=== PATIENT | male | born 1935 | race Hispanic/Latino ===

== ENCOUNTER 2017-02-06 03:58 | Emergency (ER) | payer MEDICARE ==
[~2017-02-06] VITALS: Ht 170.2 cm; Wt 82.2 kg
[~2017-02-06 03:58] MED LIST: ACYCLOVIR800 MG OR; ADULT ASPIRIN E81 MG PO; ALLEGRA-D 2424 HOUR PO; AMBIEN5 MG PO; ASPIRIN EC81 MG PO; ASPIRIN LOW81 M1 PO; AUGMENTIN500TAB PO; BLOOD GLUCOSE TEST S VI; CHEMO; COUMADIN7.5 MG OR; FLONASE NASAL50 MCG; FLUTICASONE50 MCG; GABAPENTIN300 M2 PO; GABAPENTIN300 MG PO; LANCETS XX; LOPRESSOR 550 MG/TAB PO; LOPRESSOR50 MG PO; LORTAB 7.5 OR; LORTAB 7.5 PO; LOSARTAN POT50 MG PO; LOVENOX 4040 MG/0.4 SC; MEDDOSEPAK PO; METFORMIN500 M1 OR; METFORMIN500 M1 PO; METFORMIN500 MG PO; METOPROLOL TART50 MG PO; METOPROLOL50 M1 OR; METOPROLOL50 MG OR; MIRAPEX0.25 MG PO; MIRAPEX0.5 MG PO; NAPROSYN375 MG PO; NAPROSYN500 MG PO; NEUPOGEN IJ; NEURONTIN300 MG PO; NORCO1 TA1 PO; PERCOCET 5/325M1 TAB OR; PERI-COLACE1 TAB PO; PRAVASTATIN20 MG PO; REQUIP2 MG OR; RESTORIL15 M1 PO; ROPINIROLE2 MG OR; ROPINIROLE2 MG PO; TEMAZEPAM15 MG PO; TYLENOL # 31 TA1 PO; ZOFRAN4 MG/TAB PO; ZPAK PO; ZYRTEC-D AL1 OR
[2017-02-06] MEDS ORDERED: GABAPENTIN300 MG PO (04:14)
[2017-02-06 05:25] LABS: URINE BILIRUBIN - DIPSTICK NEGATIVE (NEGATIVE); URINE BLOOD DIPSTICK SMALL (NEGATIVE); URINE CLARITY CLEAR; URINE COLOR YELLOW; URINE GLUCOSE - DIPSTICK NEGATIVE (NEGATIVE); URINE KETONE NEGATIVE (NEGATIVE); URINE LEUK ESTERASE NEGATIVE (NEGATIVE); URINE NITRITE - DIPSTICK NEGATIVE (Negative); URINE PH 5.5 (4.5-8.0); URINE PROTEIN - DIPSTICK NEGATIVE (NEG-TRACE); URINE SPECIFIC GRAVITY 1.025; URINE UROBILINOGEN - DIPSTICK 0.2 E.U./dL (0.2)
[2017-02-06 05:26] LABS: HEMATOCRIT 41.6 % (39.0-50.0); HEMOGLOBIN 14.3 g/dl (14.0-18.0); IMMATURE GRANULOCYTES 0.2 % (0.0-1.0); MEAN CELL VOLUME 90.4 fL CALC (80.0-100.0); MEAN CORPUSCULAR HGB 31.1 pG CALC (26.0-32.0); MEAN CORPUSCULAR HGB CONC 34.4 g/L CALC (32.0-36.0); NEUT# 5.84 thou/uL (1.82-7.42); RED BLOOD COUNT 4.6 mill/uL (4.70-6.10); RED CELL DISTRI WIDTH 13.6 % (11.5-15.5)
[2017-02-06 05:37] LABS: URINE WBC 0-2 WBC/hpf (0-5)
[2017-02-06 06:08] LABS: ALBUMIN 4.5 g/dL (3.2-5.0); ALKALINE PHOSPHATASE 76 u/l (38-126); AMYLASE 77 u/l (30-110); ANION GAP 16 (6-22 (CALC)); BILIRUBIN, TOTAL 0.5 mg/dL (0.0-1.4); BUN 14 mg/dL (8-23); BUN/CREATININE RATIO 19 (12-20 (CALC)); CALCIUM 9.8 mg/dL (8.4-10.2); CARBON DIOXIDE 28 mmol/l (22-30); CHLORIDE 104 mmol/l (95-108); CREATININE 0.7 mg/dL (0.7-1.3); GFR > 60 ML/MIN (>=60 (CALC)); GFR FOR AFR.AMER. > 60 ML/MIN (>=60 (CALC)); GLUCOSE 133 mg/dL (82-115); LIPASE 119 u/l (23-300); POTASSIUM 4.3 mmol/l (3.5-5.1); SGOT/AST 18 u/l (19-48); SGPT/ALT 19 u/l (11-66); SODIUM 144 mmol/l (137-146); TOTAL PROTEIN 7.7 g/dL (6.3-8.2)
[2017-02-06 07:46] VITALS: BP 175/74
[2017-02-06] MEDS ORDERED: ULTRAM50 M1 PO (07:55)
== END 2017-02-06 08:06 | disposition home or self-care (01) ==
LOC: ED 03:58
PROVIDERS: Emergency Medicine
DX: R10.33 Periumbilical pain (principal); I10 Essential (primary) hypertension; E11.9 Type 2 diabetes mellitus without complications; E78.00 Pure hypercholesterolemia, unspecified; Z86.718 Personal history of other venous thrombosis and embolism; Z85.038 Personal history of other malignant neoplasm of large intestine; Z90.49 Acquired absence of other specified parts of digestive tract
CPT/HCPCS: Q9967

== ENCOUNTER 2020-12-20 10:41 | Emergency (ER) | payer MEDICARE ==
[~2020-12-20] VITALS: Ht 170.2 cm; Wt 60.0 kg
[~2020-12-20 10:41] MED LIST changes: +ULTRAM50 M1 PO
[2020-12-20] MEDS ORDERED: AMOX/K CLAV875 M1 PO (12:09)
[2020-12-20 12:32] VITALS: BP 138/89
== END 2020-12-20 12:32 | disposition home or self-care (01) ==
LOC: ED 10:41
DX: K04.7 Periapical abscess without sinus (principal); E11.9 Type 2 diabetes mellitus without complications; I10 Essential (primary) hypertension; E78.5 Hyperlipidemia, unspecified; Z85.038 Personal history of other malignant neoplasm of large intestine; Z86.718 Personal history of other venous thrombosis and embolism; Z90.49 Acquired absence of other specified parts of digestive tract

== ENCOUNTER 2025-01-26 09:13 | Emergency (ER) | payer MEDICARE ==
[2025-01-26] VITALS (8 sets, daily range): BP systolic 147–225; BP diastolic 47–168
[~2025-01-26] VITALS: Ht 170.2 cm; Wt 79.5 kg
[~2025-01-26 09:13] MED LIST changes: +AMOX/K CLAV875 M1 PO
[2025-01-26] MEDS ORDERED: MORPHINE SULFATE 4 MG/ML VIAL IV ONE (09:25)
[2025-01-26] MEDS ORDERED: ONDANSETRON HCl 4 MG/2 ML SDV IV ONE (09:25)
[2025-01-26 09:43] LABS: BASO% 0.3 % (0-3); EOS% 2.6 % (0-8); HEMATOCRIT 37.4 % (39.0-50.0); HEMOGLOBIN 12.4 g/dl (14.0-18.0); IMMATURE GRANULOCYTES 0.5 % (0.0-5.0); MEAN CELL VOLUME 94.4 fL CALC (80.0-100.0); MEAN CORPUSCULAR HGB 31.3 pG CALC (26.0-32.0); MEAN CORPUSCULAR HGB CONC 33.2 g/dL CAL (32.0-36.0); MONO% 7.4 % (2-13); NEUT# 7.22 thou/uL (1.82-7.42); NEUT% 70.2 % (42-76); RED BLOOD COUNT 3.96 mill/uL (4.70-6.10); RED CELL DISTRI WIDTH 14.3 % (11.5-15.5)
[2025-01-26 09:57] LABS: ALBUMIN 4.1 g/dL (3.2-5.0); ALKALINE PHOSPHATASE 86 u/l (38-126); BUN 15 mg/dL (8-23); BUN/CREATININE RATIO 21 (12-20 (CALC)); CHLORIDE 102 mmol/l (95-108); CREATININE 0.7 mg/dL (0.7-1.3); ESTIMATED GFR 89 ML/MIN (>=90 (CALC)); SGOT/AST 20 u/l (19-48); SODIUM 139 mmol/l (137-146); TOTAL PROTEIN 6.9 g/dL (6.3-8.2)
[2025-01-26 10:09] LABS: ANION GAP 12 (6-22 (CALC)); BILIRUBIN, TOTAL 0.8 mg/dL (0.2-1.3); CARBON DIOXIDE 29 mmol/l (22-30)
[2025-01-26 11:33] LABS: URINE BILIRUBIN - DIPSTICK Negative (NEGATIVE); URINE BLOOD DIPSTICK Negative (NEGATIVE); URINE GLUCOSE - DIPSTICK Negative (NEGATIVE); URINE KETONE Negative (NEGATIVE); URINE LEUK ESTERASE Negative (NEGATIVE); URINE NITRITE - DIPSTICK Negative (Negative); URINE PROTEIN - DIPSTICK Negative (NEG-TRACE); URINE UROBILINOGEN - DIPSTICK 0.2 E.U./dL (0.2)
[2025-01-26 11:34] LABS: URINE COLOR Yellow
[2025-01-26] MEDS ORDERED: HYDROCO/APAP1 TA9 PO (12:36)
[2025-01-26] MEDS ORDERED: EC-NAPROXEN500 MG PO (12:36)
== END 2025-01-26 13:03 | disposition home or self-care (01) ==
LOC: ED 09:13
PROVIDERS: Family Medicine
DX: R55 Syncope and collapse (principal); S22.42XA Multiple fractures of ribs, left side, initial encounter for closed fracture; I10 Essential (primary) hypertension; E11.9 Type 2 diabetes mellitus without complications; E78.5 Hyperlipidemia, unspecified; W18.2XXA Fall in (into) shower or empty bathtub, initial encounter; Y92.002 Bathroom of unspecified non-institutional (private) residence as the place of occurrence of the external cause; Z90.49 Acquired absence of other specified parts of digestive tract; Z86.718 Personal history of other venous thrombosis and embolism; Z85.038 Personal history of other malignant neoplasm of large intestine
CPT/HCPCS: J2405